=== PATIENT | male | born 1950 | race Caucasian/White ===

== ENCOUNTER 2021-02-05 15:46 | Emergency (ER) | payer MEDICARE, MEDICAID ==
[~2021-02-05] VITALS: Ht 193 cm; Wt 80.0 kg
[~2021-02-05 15:46] MED LIST: ATOR-2 PO; BUPR150T13 PO; BUPR150T73 PO; CLOP75TA PO; DULO30CA2 PO; FURO20TA3 PO; HYDR-3248 PO; HYDR25TA6 PO; MIRT-14 PO; MORP60TA22 PO; OXYC15TA3 PO; POTA20TA89 PO; TAMS-11 PO; TRAM50TA2 PO
[2021-02-05] MEDS ORDERED: ONDANSETRON 2MG/ML, 2ML IVPush ONE (16:30)
[2021-02-05 16:55] LABS: BASOPHILS % (AUTO) 1 % (0-1); EOSINOPHILS % (AUTO) 2 % (1-7); LYMPHOCYTES % (AUTO) 17 % (22-44); MEAN CORPUSCULAR HEMOGLOBIN 37.7 pg (27.5-34.5); MEAN CORPUSCULAR HGB CONC 34.9 g/dL (33.2-36.2); MEAN PLATELET VOLUME 7.4 fL (7.4-10.4); MONOCYTES % (AUTO) 6 % (2-9); NEUTROPHILS % (AUTO) 75 % (42-75); PLATELET COUNT 354 x10^3/uL (130-400); RED BLOOD COUNT 3.36 x10^6/uL (4.38-5.82)
[2021-02-05] MEDS ORDERED: ONDANSETRON 2MG/ML, 2ML ONE (17:02)
[2021-02-05] MEDS ORDERED: MORPHINE SULFATE 4 MG/ML, 1ML ONE ×3 (17:02→19:55)
[2021-02-05 17:04] LABS: ALANINE AMINOTRANSFERASE 32 U/L (12-78); ANION GAP 7 mmol/L (5-15); CALCIUM 8.5 mg/dL (8.5-10.1); CHLORIDE 106 mmol/L (98-107)
[2021-02-05] MEDS: MORPHINE SULFATE 4 MG/ML, 1ML IVPush PRN ×2 (17:05→20:00)
[2021-02-05 17:07] LABS: ALKALINE PHOSPHATASE 83 U/L (45-117); BILIRUBIN,TOTAL 0.7 mg/dL (0.2-1.0); TOTAL PROTEIN 6.1 g/dL (6.4-8.2)
[2021-02-05 17:28] LABS: PROTHROMBIN TIME 10.7 Seconds (9.6-11.5)
[2021-02-05] MEDS ORDERED: OMNIPAQUE 350 MG/ML, 100ML BOTTLE ONE (18:14)
[2021-02-05] MEDS ORDERED: MORPHINE SULFATE 4 MG/ML, 1ML IV ONE (19:00)
[2021-02-05 19:59] VITALS: BP 138/84
== END 2021-02-05 20:32 | disposition home or self-care (01) ==
LOC: ED 19:53
DX: K92.1 Melena (principal); R10.32 Left lower quadrant pain; I11.0 Hypertensive heart disease with heart failure; I50.9 Heart failure, unspecified; Z86.73 Personal history of transient ischemic attack (TIA), and cerebral infarction without residual deficits; Z87.891 Personal history of nicotine dependence
CPT/HCPCS: 36415; 74177; 80053; 85025; 85610; 96374; 96375; 96376; 99285; J2270; J2405; Q0177; Q9967